=== PATIENT | male | born 1935 | race Two or more races ===

== ENCOUNTER 2018-05-25 09:28 | Outpatient (CLI) | payer MEDICARE ==
[~2018-05-25 09:28] MED LIST: REGADENOSON 0.4 MG/5 ML DISP.SYRIN IVP ONE
== END 2018-05-25 23:59 | disposition home or self-care (01) ==
LOC: NM 09:28
PROVIDERS: ATTEND Internal Medicine Interventional Cardiology
DX: R06.00 Dyspnea, unspecified (principal); R07.9 Chest pain, unspecified
CPT/HCPCS: 78452; A9502; J2785

== ENCOUNTER 2018-08-04 21:21 | Emergency (ER) | payer MEDICARE ==
[~2018-08-04] VITALS: Ht 167.6 cm; Wt 77.1 kg
--- NOTE | 2018-08-04 21:30 | NUR ---
TO ER BED 13 C/C BLOOD IN URINE "SINCE EARLIER THIS EVENING". AA/OX4. "I TRIED TO SELF CATHETER, AND THEN I STARTED TO PEE BLOOD." SKIN PINK, WARM, DRY. AMBULATED TO BED WITH STABLE GAIT. NAD. VSS. STABLE CONDITION. WILL CONTINUE TO MONITOR.
--- NOTE | 2018-08-04 22:12 | NUR ---
OBTAINED URINE SAMPLE. PT ABLE TO USE URINAL.
[2018-08-04 22:38] LABS: APPEARANCE,URINE CLOUDY (CLEAR); BILIRUBIN,URINE NEGATIVE (NEGATIVE); BLOOD, URINE 3+ Ery/uL (NEGATIVE); COLOR,URINE YELLOW (YELLOW); KETONES,URINE NEGATIVE (NEGATIVE); LEUKOCYTE ESTERASE ,URINE 3+ (NEGATIVE); NITRITE, URINE POSITIVE (NEGATIVE); PH,URINE 7.5 (5.0-8.0); PROTEIN,URINE 1+ mg/dl (NEGATIVE); UGLUCOSE NEGATIVE (NEGATIVE); UROBILINOGEN,URINE 0.2 EU/dL (0.2)
[2018-08-04 22:40] LABS: BACTERIA,URINE Few /HPF (None Seen); RBC,URINE 51-80 /HPF (0-2); SQUAMOUS EPITHELIAL CELL,UR Rare /HPF (None Seen); WBC,URINE TOO NUMEROUS TO COUN /HPF (0-3)
[2018-08-04 23:19] VITALS: BP 132/72
--- NOTE | 2018-08-04 23:33 | NUR ---
Patient discharged to home in stable condition. Written and verbal after care instructions given. Patient verbalizes understanding of instruction. AMBULATED WITH STEADY GAIT. LOPEZ. VSS.
== END 2018-08-04 23:35 | disposition home or self-care (01) ==
LOC: ER 21:26
DX: N39.0 Urinary tract infection, site not specified (principal); N40.0 Benign prostatic hyperplasia without lower urinary tract symptoms; E03.9 Hypothyroidism, unspecified; Z90.49 Acquired absence of other specified parts of digestive tract; Z98.890 Other specified postprocedural states; Z88.0 Allergy status to penicillin
CPT/HCPCS: 76856-TC; 81000-TC; 87086-TC; 87186-TC; A4606; Z7610

== ENCOUNTER 2019-10-10 20:35 | Emergency (ER) | payer MEDICARE ==
[~2019-10-10] VITALS: Ht 172.7 cm; Wt 74.4 kg
--- NOTE | 2019-10-10 21:54 | NUR ---
BIBS. BLEEDING AFTER SELF CATHETERIZATION. BRIGHT RED BLOOD @ 1830 URINE SAMPLE COLLECTED AND SENT TO LAB. TO ER BED 1 AWAITING MD [place]
[2019-10-10] MEDS ORDERED: IV NS 0.9% 500 ML BAG IV ONE (22:00)
[2019-10-10 22:02] LABS: APPEARANCE,URINE Slightly Cloudy (CLEAR); BILIRUBIN,URINE LARGE (NEGATIVE); BLOOD, URINE Large Ery/uL (NEGATIVE); COLOR,URINE Red (YELLOW); KETONES,URINE >=160 (NEGATIVE); LEUKOCYTE ESTERASE ,URINE Large (NEGATIVE); NITRITE, URINE Positive (NEGATIVE); PROTEIN,URINE >=300 mg/dl (NEGATIVE); UGLUCOSE Negative (NEGATIVE)
[2019-10-10 22:10] LABS: BASOPHILS % (AUTO) 0.5 % (0.0-2.0); EOSINOPHILS % (AUTO) 1.7 % (0.0-6.0); HEMATOCRIT 43 % (39-51); HEMOGLOBIN 14.3 g/dL (13.5-17.5); LYMPHOCYTES # (AUTO) 2.1 /CMM (0.8-4.8); LYMPHOCYTES % (AUTO) 32.6 % (20.0-44.0); MEAN CORPUSCULAR HGB CONC 34 g/dl (31.0-36.0); MEAN CORPUSCULAR VOLUME 88 fL (80-96); MONOCYTES # (AUTO) 0.7 /CMM (0.1-1.30); MONOCYTES % (AUTO) 10.4 % (2.0-12.0); NEUTROPHILS # (AUTO) 3.5 /CMM (1.8-8.9); NEUTROPHILS % (AUTO) 54.8 % (43.0-81.0); PLATELET COUNT (AUTO) 209 /CMM (150-450); RED BLOOD CELL COUNT(AUTO) 4.85 MIL/uL (4.5-6.0); WHITE BLOOD COUNT (AUTO) 6.5 K/uL (4.3-11.0)
[2019-10-10 22:20] LABS: CALCIUM, SERUM 8.5 mg/dL (8.5-10.1); CREATININE 1.2 mg/dL (0.6-1.3)
[2019-10-10 22:25] LABS: ALBUMIN 3.3 g/dL (3.4-5.0); BILIRUBIN,DIRECT 0.2 mg/dL (0.0-0.2); BILIRUBIN,TOTAL 0.8 mg/dL (0.2-1.0); TOTAL PROTEIN, SERUM 6.7 g/dL (6.4-8.2)
[2019-10-10 22:43] LABS: BACTERIA,URINE Few /HPF (None Seen); RBC,URINE TOO NUMEROUS TO COUN /HPF (0-2); SQUAMOUS EPITHELIAL CELL,UR Rare /HPF (None Seen); WBC,URINE 0-2 /HPF (0-3)
--- NOTE | 2019-10-10 23:16 | NUR ---
PT CONTINUE TO BLEED, 3 WAY CE[facility]ALL[place] INSTERTED FOR IRRIGATION, OTUPUT CLEAR
--- NOTE | 2019-10-11 00:28 | NUR ---
Patient discharged to home in stable condition. Written and verbal after care instructions given. Patient verbalizes understanding of instruction.
[2019-10-11 00:30] VITALS: BP 145/76
== END 2019-10-11 00:31 | disposition home or self-care (01) ==
LOC: ER 20:38
DX: R31.9 Hematuria, unspecified (principal); N39.0 Urinary tract infection, site not specified; N48.89 Other specified disorders of penis; E03.9 Hypothyroidism, unspecified; Z90.49 Acquired absence of other specified parts of digestive tract; Z98.890 Other specified postprocedural states; Z88.0 Allergy status to penicillin; Z60.2 Problems related to living alone
CPT/HCPCS: 36415; 51700; 80048; 80076; 81001; 83690; 85025; 85730; 87086; 99284; A4217 ×2; J7040; 81000-TC